=== PATIENT | female | born 1990 | race Caucasian/White ===

== ENCOUNTER 2021-03-21 22:14 | Inpatient (IN) ==
[2021-03-21 22:23] VITALS: BMI 29.2
[2021-03-21] MEDS ORDERED: LR 1000 ML IV 1,000 ML IV ONE ×2 (22:33→23:59)
[2021-03-21] MEDS ORDERED: ANCEF 1 GRAM IV PREMIX* 1 G/50 ML BAG IV ONE (22:33)
[2021-03-21 22:35] LABS: BILIRUBIN,URINE NEGATIVE (NEGATIVE); BLOOD/HEMOGLOBIN,URINE NEGATIVE (NEGATIVE); GLUCOSE, URINE NEGATIVE (NEGATIVE); KETONES,URINE NEGATIVE (NEGATIVE); LEUKOCYTE ESTERASE ,URINE NEGATIVE (NEGATIVE); NITRITES,URINE NEGATIVE (NEGATIVE); PH,URINE 6.5 (5.0 - 8.0); PROTEIN,URINE NEGATIVE (NEGATIVE); UROBILINOGEN,URINE NORMAL (NORMAL)
[2021-03-21 22:40] LABS: AMNISURE ROM TEST THERE IS A RUPTURE (NO RUPTURE); APPEARANCE,URINE CLEAR (CLEAR); COLOR,URINE STRAW (YELLOW)
[2021-03-21] MEDS ORDERED: VERSED ONE (22:51)
[2021-03-21] MEDS ORDERED: EPHEDRINE SULFATE INJ ONE (22:51)
[2021-03-21] MEDS ORDERED: PITOCIN ONE (22:51)
[2021-03-21] MEDS ORDERED: DILAUDID INJ ONE (23:27)
[2021-03-22] MEDS ORDERED: PHENERGAN INJ 25 MG IM PRN (01:08)
[2021-03-22] MEDS ORDERED: REGLAN INJ 10 MG VIAL IVP PRN ×2 (01:08→01:40)
[2021-03-22] MEDS ORDERED: BENADRYL INJ 50 MG VIAL IVP PRN ×2 (01:08→01:40)
[2021-03-22] MEDS ORDERED: ZOFRAN INJ 4 MG VIAL IVP PRN ×2 (01:08→01:40)
[2021-03-22] MEDS ORDERED: TORADOL 30 MG VIAL IVP PRN (01:40)
[2021-03-22] MEDS ORDERED: PERCOCET TAB 5/325 MG PO PRN (01:40)
[2021-03-22] MEDS ORDERED: MYLICON TAB 80 MG CHEW PO PRN (01:40)
[2021-03-22] MEDS ORDERED: NARCAN INJ IVP PRN (01:40)
[2021-03-22] MEDS ORDERED: ADACEL or BOOSTRIX TDaP VACCINE IM ONE (01:40)
[2021-03-22] MEDS ORDERED: D5 1/2 NS 1000 ML 1,000 ML with PITOCIN 20 UNITS IV SCH ×2 (02:00)
[2021-03-22] MEDS ORDERED: D5 1/2 NS 1L W PITOCIN 20 UNITS/L 20 UNITS/1,000 ML BAG IV ONE (02:03)
[2021-03-22 04:37] LABS: HEMATOCRIT 34.3 % (36.0-47.0); HEMOGLOBIN 11.3 g/dL (12.0-16.0)
[2021-03-22] MEDS: COLACE CAP 100 MG PO SCH ×2 (09:27→21:48)
[2021-03-22] MEDS: PRENATAL PLUS PO SCH (09:27)
[2021-03-22] MEDS: PERCOCET TAB 5/325 MG PO PRN ×2 (12:54→19:29)
[2021-03-22] MEDS: BACTROBAN TOPICAL OINT TOP SCH ×2 (14:43→21:48)
[2021-03-22] MEDS: NICOTINE PATCH TD SCH (16:22)
[2021-03-22] MEDS: MOTRIN TAB 800 MG PO PRN ×2 (18:12→22:40)
[2021-03-23] MEDS: PERCOCET TAB 5/325 MG PO PRN ×2 (05:06→09:36)
[2021-03-23] MEDS: BACTROBAN TOPICAL OINT TOP SCH (05:31)
[2021-03-23 08:01] VITALS: BP 105/58
[2021-03-23] MEDS: PRENATAL PLUS PO SCH (09:21)
[2021-03-23] MEDS: COLACE CAP 100 MG PO SCH (09:21)
[2021-03-23] MEDS: NICOTINE PATCH TD SCH (09:23)
== END 2021-03-23 12:45 | disposition home or self-care (01) | DRG 788 ==
LOC: ER 22:18 → LD 22:51 → MED/SURG 03-22 01:45
PROVIDERS: ADMIT Specialist; ATTEND Specialist